=== PATIENT | male | born 1970 | race African-American/Black ===

== ENCOUNTER 2019-11-14 19:03 | Emergency (ER) | payer SELFPAY ==
[~2019-11-14] VITALS: Ht 188 cm; Wt 157.4 kg
[2019-11-14 19:14] VITALS: Ht 188 cm; Wt 157.4 kg
[2019-11-14 20:39] VITALS: BP 153/94
== END 2019-11-14 20:39 | disposition home or self-care (01) ==
LOC: ED 19:03
DX: R30.0 Dysuria (principal); R31.9 Hematuria, unspecified; F17.210 Nicotine dependence, cigarettes, uncomplicated
CPT/HCPCS: 87491; 87591